=== PATIENT | male | born 1945 | race Two or more races ===

== ENCOUNTER 2020-07-10 18:32 | Emergency (ER) | payer SELFPAY ==
[~2020-07-10] VITALS: Ht 167.6 cm; Wt 72.6 kg
--- NOTE | 2020-07-10 18:38 | Emergency Room Report ---
History of Present Illness General Chief Complaint: Chest Pain Source: Patient, EMS Present Illness HPI Disclaimer: Please note that this report is being documented using DRAGON technology. This can lead to erroneous entry secondary to incorrect interpretation by the dictating instrument. HPI: 74-year-old male history of diabetes and hyperlipidemia presents for evaluation of chest pain. Symptoms began 3 hours ago while the patient was at rest. Notes of left-sided nonradiating pressure. Was a 7/10 prior to EMS arrival. He denies shortness of breath or palpitations or syncope. Denies nausea vomiting or diaphoresis. Given aspirin and nitroglycerin by EMS. Pain improved. Still feels it. No prior history of CAD. Current smoker. 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 PMH: Hyperlipidemia, diabetes PSH: Denied Allergies: Denied Social Hx: Current smoker, former drug abuse, former alcoholic Allergies: Coded Allergies: No Known Allergies (Unverified , 07/10/20) COVID-19 Screening Contact w/high risk pt: No Experienced COVID-19 symptoms?: No COVID-19 Testing performed SINGLE NEEDLE OPERATOR: No Review of Systems All Other Systems: negative except mentioned in HPI Physical Exam Vital Signs Date Time Temp Pulse Resp B/P (MAP) Pulse Ox O2 Delivery O2 Flow Rate FiO2 07/10/20 18:29 97.5 94 16 116/80 (92) 98 Room Air General: Awake and alert, no acute distress HEENT: NC/AT. EOMI. Cardiovascular: RRR. S1 and S2 normal. No murmur appreciated Resp: Normal work of breathing. No cough, wheezing or crackles appreciated Abdomen: Abdomen is soft, nondistended. Nontender Skin: Intact. No abrasions, laceration or rash over the exposed skin MSK: Normal tone and bulk. Moving all extremities. No obvious deformity. Neuro: Awake and alert. Mentating appropriately. Medical Decision Making Diagnostic Impression: Primary Impression: Chest pain Additional Impression: Left against medical advice ER Course 74-year-old male presents for evaluation of chest pain. Differential includes was not limited to ACS, arrhythmia, bronchitis, esophageal spasm, GERD among others. Patient arrived to stable vital signs. Received aspirin and nitroglycerin prior to arrival by EMS. Originally complained of mild residual chest pain but now approximately 1.5 hours in the emergency department his pain is completely resolved. His EKG shows inferior and lateral Q waves but no acute ST segment changes. Troponin is negative and other labs are within normal limits. Chest x-ray is unremarkable. I advised the patient that because of his risk factors including age, prior drug abuse, medical conditions and his EKG he should stay in the hospital for cardiac evaluation. The patient declined stating he has to return to his substance abuse housing because he does want to lose his spot. I informed him that this could be the signs of subtle cardiac ischemia which may worsen particularly if he continues to smoke or if he should relapse and to return to former drug abuse habits. He stated that since he felt well now he does not want to stay in the hospital but would return should his symptoms return. Patient takes aspirin daily and I instructed him to continue doing so. Instructed to return with new or worsening symptoms. He signed AMA paperwork and left the emergency department. Heart score: History: 1 EC Age: 1 Risk factors: 2 Initial troponin: 0 Total: 6 Laboratory Tests Test 07/10/20 19:06 White Blood Count 7.0 K/UL (4.8-10.8) Red Blood Count 4.34 M/UL (4.70-6.10) L Hemoglobin 14.3 G/DL (14.2-18.0) Hematocrit 45.2 % (42.0-52.0) Mean Corpuscular Volume 104 FL (80-99) H Mean Corpuscular Hemoglobin 32.9 PG (27.0-31.0) H Mean Corpuscular Hemoglobin Concent 31.6 G/DL (32.0-36.0) L Red Cell Distribution Width 13.1 % (11.6-14.8) Platelet Count 176 K/UL (150-450) Mean Platelet Volume 7.4 FL (6.5-10.1) Neutrophils (%) (Auto) 55.2 % (45.0-75.0) Lymphocytes (%) (Auto) 26.9 % (20.0-45.0) Monocytes (%) (Auto) 10.1 % (1.0-10.0) H Eosinophils (%) (Auto) 6.1 % (0.0-3.0) H Basophils (%) (Auto) 1.7 % (0.0-2.0) Sodium Level 137 MMOL/L (136-145) Potassium Level 4.6 MMOL/L (3.5-5.1) Chloride Level 101 MMOL/L (98-107) Carbon Dioxide Level 35 MMOL/L (21-32) H Anion Gap 1 mmol/L (5-15) L Blood Urea Nitrogen 18 mg/dL (7-18) Creatinine 1.2 MG/DL (0.55-1.30) Estimated Glomerular Filtration Rate 59.0 mL/min (>60) Glucose Level 139 MG/DL (74-106) H Calcium Level 9.3 MG/DL (8.5-10.1) Total Bilirubin 0.3 MG/DL (0.2-1.0) Aspartate Amino Transferase (AST) 61 U/L (15-37) H Alanine Aminotransferase (ALT) 59 U/L (12-78) Alkaline Phosphatase 124 U/L (46-116) H Troponin I 0.000 ng/mL (0.000-0.056) Total Protein 8.0 G/DL (6.4-8.2) Albumin 3.3 G/DL (3.4-5.0) L Globulin 4.7 g/dL Albumin/Globulin Ratio 0.7 (1.0-2.7) L EKG Diagnostic Results Troponin ordered: Yes When was troponin ordered?: Jul 10, 2020 EKG Time: 18:43 Rate: normal Rhythm: NSR ST Segments: no acute changes Other Impression Sinus rhythm, normal axis, normal intervals, QTC 399 ms. Inferior Q waves. Lateral Q waves. ASA given to the pt in ED: No - Received prior to arrival Rhythm Strip Diag. Results Rhythm Strip Time: 18:43 EP Interpretation: yes Rate: 80s Rhythm: NSR, no PVC's, no ectopy Last Vital Signs Date Time Temp Pulse Resp B/P (MAP) Pulse Ox O2 Delivery O2 Flow Rate FiO2 07/10/20 18:29 97.5 94 16 116/80 (92) 98 Room Air Disposition: AGAINST MEDICAL ADVICE Condition: Stable Devon Pink MD Jul 10, 2020 18:38
[2020-07-10] MEDS ORDERED: AMITRIPTYLINE100 MG ORAL (18:40)
[2020-07-10] MEDS ORDERED: OMEPRAZOLE20 M2 ORAL (18:40)
[2020-07-10] MEDS ORDERED: LOSARTAN POTASS50 MG ORAL (18:40)
[2020-07-10] MEDS ORDERED: METFORMIN HCL500 M1 ORAL (18:40)
[2020-07-10] MEDS ORDERED: NITRO0.4 SL (18:40)
[2020-07-10] MEDS ORDERED: TRAZODONE HCL150 MG ORAL (18:40)
[2020-07-10] MEDS ORDERED: GLIPIZIDE5 MG ORAL (18:40)
[2020-07-10] MEDS ORDERED: ABILIFY2 MG ORAL (18:40)
[2020-07-10] MEDS ORDERED: GABAPENTIN100 MG ORAL (18:40)
[2020-07-10] MEDS ORDERED: KAZANO 12.5-1,1 EACH ORAL (18:40)
[2020-07-10] MEDS ORDERED: ASPIRIN81 MG ORAL (18:40)
[2020-07-10] MEDS ORDERED: ZOFRAN4 M3 ORAL (18:40)
[2020-07-10 18:54] VITALS: BP 116/80
--- NOTE | 2020-07-10 19:01 | NUR ---
ED Nurse Note: Patient was BIBA RA#[id number] from home c/o non radiating midsternal CP x30 mins ago. Pt was given Ntg and Aspirin en route. Patient presented calm, AO x4, all VSS at thid time.
--- NOTE | 2020-07-10 19:18 | NUR ---
HAND-OFF: Report given to MARAH Oliveira.
[2020-07-10 19:31] LABS: BASOPHILS % (AUTO) 1.7 % (0.0-2.0); EOSINOPHILS % (AUTO) 6.1 % (0.0-3.0); HEMATOCRIT 45.2 % (42.0-52.0); HEMOGLOBIN 14.3 G/DL (14.2-18.0); LYMPHOCYTES % (AUTO) 26.9 % (20.0-45.0); MEAN CORPUSCULAR VOLUME 104 FL (80-99); MONOCYTES % (AUTO) 10.1 % (1.0-10.0); NEUTROPHILS % (AUTO) 55.2 % (45.0-75.0); PLATELET COUNT 176 K/UL (150-450); RED BLOOD COUNT 4.34 M/UL (4.70-6.10); RED CELL DISTRIBUTION WIDTH 13.1 % (11.6-14.8)
[2020-07-10 19:41] LABS: CALCIUM 9.3 MG/DL (8.5-10.1); CREATININE 1.2 MG/DL (0.55-1.30); POTASSIUM 4.6 MMOL/L (3.5-5.1)
[2020-07-10 19:46] LABS: ALBUMIN 3.3 G/DL (3.4-5.0); ALBUMIN/GLOBULIN RATIO 0.7 (1.0-2.7); BILIRUBIN,TOTAL 0.3 MG/DL (0.2-1.0)
--- NOTE | 2020-07-10 19:50 | NUR ---
ED Nurse Note: ERMD at bedside
[2020-07-10 20:00] VITALS: BP 119/76
--- NOTE | 2020-07-10 20:00 | NUR ---
AMA: Pt advised regarding choice to leave AMA despite ERMD's voiced concerns. Pt ambulated with steady gait, vss no ss of distress noted. Pt took all belongings. IV line and wristband removed. Pt aao x 4 and verbalized understanding of risks and concerns regarding discharge. SEE AMA FORM.
--- NOTE | 2020-07-11 19:22 | Diagnostic Imaging Report ---
Indication: Chest pain Technique: One view of the chest Comparison: none Findings: Lungs and pleural spaces are clear. Heart size is normal. Impression: No acute process
--- NOTE | 2020-07-12 02:27 | Cardiology Report ---
APPROVED REPORT EKG Measurement Heart [id number] <Conclusion> Normal sinus rhythm Possible Left atrial enlargement Borderline ECG
== END 2020-07-10 20:00 | disposition left against medical advice (07) ==
LOC: EDBD 18:32 → EMR 19:31 → CANBEDREQ 20:06
DX: R07.9 Chest pain, unspecified (principal); E11.9 Type 2 diabetes mellitus without complications; E78.5 Hyperlipidemia, unspecified
CPT/HCPCS: 36415; 71045; 80053; 84484; 85025; 93005; 99283